=== PATIENT | male | born 1960 | race Caucasian/White ===

== ENCOUNTER 2021-04-02 06:31 | Day surgery (SDC) | payer MEDICAID, SELFPAY ==
[2021-04-02 06:58] VITALS: BP 135/88; PULSE 78; RESP 16; TEMP 36.7; O2SAT 100; BMI 31.9
--- NOTE | 2021-04-02 07:03 | SUR.PREOP ---
No IV started. Local anesthetic only per Office report. Patient agrees.
[2021-04-02] MEDS: Oxymetazoline 0.05% 1 SPRAY SPRAY.BTL 15 SPRAY (07:56)
[2021-04-02] MEDS: Lidocaine 4% 50 ML Bottle (07:57)
--- NOTE | 2021-04-02 08:15 | PCM.OPRPT ---
Problems Associated Problem List Diagnoses (1) Nasal septal perforation: (2) Nasal congestion: Report of Operation Date of Procedure: 04/02/21 Pre-Operative Diagnosis: Nasal septal perforation with nasal congestion Post-Operative Diagnosis: Same Surgery/Procedure Performed:: Placement of nasal septal button Description of Surgical Findings:: Zac is a 60-year-old male with complaints of chronic nasal obstruction that had been previously treated with septoplasty. This is given temporary relief however subsequently developed worsening nasal congestion and examination showed a large anterior nasal septal perforation. Placement of a nasal septal button to alleviate the turbulent airflow resulting in increase nasal airway resistance was offered and he was eager to proceed. The risks, alternatives, potential complications, and benefits were discussed at length and any questions answered to the patient and/or caregiver's satisfaction. Witnessed informed consent was obtained in the office, and the patient and/or caregiver was agreeable to proceed. Procedure went as follows: The patient was identified in the preoperative holding and brought to the operating room. Pledgets soaked in a 50-50 mixture of oxymetazoline and 4% topical lidocaine were then placed for vasoconstriction and topical anesthesia. After allowing for vasoconstriction, the nasal cavity examined where again there was noted to be a large anterior nasal septal perforation. A 3 cm Silastic button was then shaped to fit the space to ensure good coverage of the perforation and this was then inserted into the nose and seated traversing the septal perforation. This resulted in immediate improvement of his subjective nasal congestion complaints. No complications were encountered and the patient was returned to the recovery having tolerated the procedure well. Surgeon: Major Serna Type of Anesthesia: Local Special Medications: none Specimen's removed: none Drains: none Estimated Blood Loss (mL): 0 mL Fluids Replaced: 0 mL Grafts/Implants Used: 3 cm Silastic septal button Complications none Admit VTE Documentation VTE Present on Admission: No VTE Mechan Device Prophylaxis: None Reason prophylaxis not ordered:: Procedure Not Indicated
--- NOTE | 2021-04-02 08:20 | PCM.DC ---
Discharge Instructions Diet Discharge Diet: No restrictions Activity Discharge Activity: Return to Normal Activity Dressing / Incision Call your doctor if your incision/area has: Sudden Increased Bleeding Call your doctor if you observe: Fever of 101 or Higher and Uncontrolled pain Follow Up Care Please Follow Up With: Major Serna MD When: 2 weeks Test Results: Test results from this visit will be discussed in further detail at your follow-up appointment, if applicable. Discharge Plan Admission Primary Reason for Your Visit: Nasal septal perforation Attending Provider: Major Serna Primary Care Provider: Jason Ewing Discharge Orders/Prescriptions Prescriptions: New acetaminophen 500 mg Tablet 500 mg PO Q4H PRN PRN (Reason: Pain Score 1-5/10) Qty: 0 RF: 0 Continued multivitamin Tablet 1 tab PO DAILY RF: 0 atorvastatin 40 mg Tablet 40 mg PO QHS RF: 0 lansoprazole [Prevacid] 30 mg Capsule,Delayed Release(Dr/Ec) 30 mg PO DAILY RF: 0 lisinopril-hydrochlorothiazide 20-25 mg Tablet 1 tab PO DAILY RF: 0 montelukast [Singulair] 10 mg Tablet 10 mg PO DAILY RF: 0 ibuprofen 600 mg Tablet 600 mg PO BID RF: 0 metformin 1,000 mg Tablet Extended Release 24hr 1,000 mg PO BID RF: 0 fenofibrate nanocrystallized [Tricor] 145 mg Tablet 145 mg PO DAILY RF: 0 Referrals / Follow Up: Jason Ewing MD [Primary Care Provider] - Disposition Disposition (needs filled in before D/C Order can be placed): Home, Self Care
[2021-04-02 08:45] VITALS: BP 132/106; BP 135/88; PULSE 94; RESP 16; TEMP 36.5; O2SAT 99
[2021-04-02 08:51] LABS: Bedside Glucose 110 mg/dL (70-110)
[2021-04-02 09:03] VITALS: BP 112/64; BP 135/88; PULSE 115
[2021-04-02 10:06] VITALS: BP 129/90; BP 135/88; RESP 16; O2SAT 97
--- NOTE | 2021-04-02 10:20 | PN.SURG_ITS ---
Subjective Subjective Patient was noted to have some irregular heartbeat and tachycardia in the postoperative period. He denies any prior cardiac history, shortness of breath, chest pain, or lightheadedness. Objective Data Objective Data Vital Signs: Vital Signs Temp Pulse Resp BP Pulse Ox 97.7 F L 115 H 16 129/90 H 97 04/02/21 08:45 04/02/21 09:03 04/02/21 10:06 04/02/21 10:06 04/02/21 10:06 Oxygen Delivery Method Room Air Weight: 95.4 kg Body Mass Index (BMI) 31.9 Lab / Micro Data Labs: Laboratory Results - last 24 hr 04/02/21 06:52: POC Glucose 110 Physical Exam Narrative Patient is well-appearing at the bedside no acute distress he is alert and cooperative. He is tachycardic between 9220s with some irregular heartbeat. There is no chest pain, diaphoresis, or elevated respiratory rate. Assessment & Plan Assessment/Plan (1) Nasal septal perforation: PLAN: The patient has some tachycardia in the postoperative period. He did not undergo any form of anesthesia today other than topical Afrin and lidocaine placement in the nasal cavity. I suspect that his tachycardia is due to the cardiovascular effects of the oxymetazoline and given his absence of any symptoms or history of cardiac disease I have contacted his primary care physician's office who is agreeable to see him for evaluation today. I d iscussed with him the likelihood that this will subside as the effects of the oxymetazoline subside but have instructed him to present to the emergency department for any development of chest pain shortness of breath right arm or jaw pain or other signs of cardiac injury and he is agreeable to do so.
--- NOTE | 2021-04-02 10:27 | SUR.PHASEII ---
1005 DR MONTE HERE TO SEE PATIENT. PATIENT TACHY WITH IRREGULARITY ON THE HEART MONITOR. PT ASYMPTOMATIC. DR MONTE CONTACT PRIMARY CARE PHYSICIAN DR GANNON . PATIENT WILL SEE DR Cornelius BARAJAS ( ASSOCIATE ) TODAY AT 1250. DD
[2021-04-02 10:33] VITALS: BP 135/88
== END 2021-04-02 10:36 | disposition home or self-care (01) ==
LOC: SDC 06:38 → AC 06:45
PROVIDERS: PCP Family Medicine; Referring Provider Otolaryngology; Visit Provider Otolaryngology
PROC: (CPT 30520; principal; 2021-04-02 07:55)
DX: J34.89 Other specified disorders of nose and nasal sinuses (principal); R09.81 Nasal congestion; H90.3 Sensorineural hearing loss, bilateral; M19.90 Unspecified osteoarthritis, unspecified site; E11.9 Type 2 diabetes mellitus without complications; Z79.84 Long term (current) use of oral hypoglycemic drugs; Z79.899 Other long term (current) drug therapy
CPT/HCPCS: 30220; 82962